=== PATIENT | male | born 1975 | race Caucasian/White ===

== ENCOUNTER 2018-08-17 09:31 | Emergency (ER) | payer BC ==
--- NOTE | 2018-08-17 09:58 | Emergency Department Record ---
History of Present Illness - General Chief Complaint: Syncope Stated Complaint: PASSED OUT, LEFT RIB PAIN Time Seen by Provider: 08/17/18 09:50 Source: Patient, RN notes reviewed Mode of Arrival: Ambulatory - History of Present Illness Initial Comments: patient getting up at 6:30 am and said he had to go the bathroom with a full bladder and urge to have a BM and he got up to go to the bathroom and felt like he ws going to vomit and went to the kitchen to vomit in sink and passed out. states she heard him fall and was with him in 5 seconds and was shaking like seizure activity and drowling. and tried to call EMS and he became aware of everything at about 1-2 minutes and said don't call the ambulance and they came in to the ED by car. Currently alert and oriented times three and he remembers the event except for the fall. PMH hypertension. Patient said he had d iarrhea multiple episodes last night. Onset/Timin -: Hour(s) Prodromal Symptoms: Lightheaded Duration of Episode: 1 -: Minutes(s) Current Symptoms: Abdominal pain, Weakness, Other - [place] Coma Scale Eye Response: (4) Open spontaneously Motor Response: (6) Obeys commands Verbal Response: (5) Oriented [place] Total: 15 - Related Data Home Medications Medication Instructions Recorded Confirmed Last Taken Benazepril HCl [Lotensin] 10 mg PO DAILY 08/17/18 08/17/18 08/16/18 Hydrochlorothiazide [Hctz] 12.5 mg PO DAILY 08/17/18 08/17/18 Unknown Omeprazole Magnesium [Prilosec Otc] 20 mg PO DAILY 08/17/18 08/17/18 08/17/18 Allergies Allergy/AdvReac Type Severity Reaction Status Date / Time kiwi Allergy ANAPHYLAXIS Verified 08/17/18 09:50 mold Allergy HYPERSENSIT Verified 08/17/18 09:50 IVITY Travel Screening - Travel/Exposure Within Last 30 Days Have you traveled within the last 30 days?: No - Travel/Exposure Within Last Year Have you traveled outside the [place] in the last year?: No - Additonal Travel Details Have you been exposed to anyone with a communicable illness?: No - Travel Symptoms Symptom Screening: None, Fever (Subjective), Diarrhea Review of Systems Reviewed: No additional complaints except as noted below Constitutional: Reports: As per HPI. Denies: Chills, Fever, Malaise, Night sweats, Weakness, Weight change Eyes: Reports: As per HPI. Denies: Eye discharge, Eye pain, Photophobia, Vision change ENT: Reports: As per HPI. Denies: Congestion, Dental pain, Ear pain, Epistaxis, Hearing loss, Throat pain Respiratory: Reports: As per HPI, Other (bruise on the left lower rib cage). Denies: Cough, Dyspnea, Hemoptysis, Stridor, Wheezes Cardiovascular: Reports: As per HPI. Denies: Arrhythmia, Chest pain, Dyspnea on exertion, Edema, Murmurs, Orthopnea, Palpitations, Paroxysmal nocturnal dyspnea, Rheumatic Fever, Syncope Endocrine: Reports: As per HPI. Denies: Fatigue, Heat or cold intolerance, Polydipsia, Polyuria Gastrointestinal: Reports: As per HPI. Denies: Abdominal pain, Constipation, Diarrhea, Hematemesis, Hematochezia, Melena, Nausea, Vomiting Genitourinary: Reports: As per HPI. Denies: Dysuria, Frequency, Hematuria, Incontinence, Retention, Testicular pain, Testicular mass, Urgency Musculoskeletal: Reports: As per HPI. Denies: Arthralgia, Back pain, Gout, Joint swelling, Myalgia, Neck pain Skin: Reports: As per HPI. Denies: Bruising, Change in color, Change in hair/nails, Lesions, Pruritus, Rash Neurological: Reports: As per HPI. Denies: Abnormal gait, Confusion, Headache, Numbness, Paresthesias, Seizure, Tingling, Tremors, Vertigo, Weakness Psychiatric: Reports: As per HPI. Denies: Anxiety, Auditory hallucinations, Depression, Homicidal thoughts, Suicidal thoughts, Visual hallucinations Hematological/Lymphatic: Reports: As per HPI. Denies: Anemia, Blood Clots, Easy bleeding, Easy bruising, Swollen glands Past Medical History - SOCIAL HISTORY Smoking Status: Never smoker Alcohol Use: Rare Drug Use: Heavy Drug Use Detail:: Marijuana - RESPIRATORY Hx Respiratory Disorders: No - CARDIOVASCULAR Hx Cardio Disorders: Yes Hx Hypertension: Yes - NEURO Hx Neuro Disorders: Yes - GI Hx GI Disorders: Yes Hx Reflux: Yes - Hx Genitourinary Disorders: No - ENDOCRINE Hx Endocrine Disorders: No - MUSCULOSKELETAL Hx Musculoskeletal Disorders: No - PSYCH Hx Psych Problems: No - HEMATOLOGY/ONCOLOGY Hx Hematology/Oncology Disorders: No Family Medical History Any Significant Family History?: No Physical Exam - General General Appearance: Alert, Oriented x3, Cooperative, No acute distress - Head Head exam: Normal inspection - Eye Eye exam: Normal appearance, PERRL Pupils: Normal accommodation - ENT ENT exam: Normal exam, Mucous membranes moist, Normal external ear exam, Normal orophraynx, TM's normal bilaterally Ear exam: Normal external inspection. negative: External canal tenderness Nasal Exam: Normal inspection. negative: Discharge, Sinus tenderness Mouth exam: Normal external inspection, Tongue normal Teeth exam: Normal inspection. negative: Dental caries Throat exam: Normal inspection. negative: Tonsillar erythema, Tonsillar exudate - Neck Neck exam: Normal inspection, Full ROM. negative: Tenderness - Respiratory Respiratory exam: Normal lung sounds bilaterally. negative: Respiratory distress - Cardiovascular Cardiovascular Exam: Regular rate, Normal rhythm, Normal heart sounds, Other (pain left lower rib cage with bruising) - GI/Abdominal GI/Abdominal exam: Soft, Normal bowel sounds. negative: Tenderness - Rectal Rectal exam: Deferred - exam: Deferred - Extremities Extremities exam: Normal inspection, Full ROM, Normal capillary refill. negative: Tenderness - Back Back exam: Reports: Normal inspection, Full ROM. Denies: Muscle spasm, Rash noted, Tenderness - Neurological Neurological exam: Alert, Normal gait, Oriented X3, Reflexes normal - Psychiatric Psychiatric exam: Normal affect, Normal mood - Skin Skin exam: Dry, Intact, Normal color, Warm Course Vital Signs 08/17/18 09:33 Temperature 98.7 F Pulse Rate 95 H Respiratory 16 Rate Blood Pressure 138/95 Pulse Ox 96 - Reevaluation(s) Reevaluation #1: patient does state marijuana use 08/17/18 10:42 Reevaluation #2: personnel monitor NSR 08/17/18 10:44 08/17/18 10:52 patient has pain palpating spleen. Medical Decision Making - Data Complexity MDM Data: Labs Ordered and/or Reviewed (wbc 13,800,), X-Ray Ordered and/or Reviewed (CT head negative, left rib fractures negative,CT of abd and pelvix no vieral trauma or injuries and some fatty stranding around normal size ly mphnodes) - Lab Data Result diagrams: 08/17/18 10:13 08/17/18 10:13 Disposition Clinical Impression: Syncope Qualifiers: Syncope type: vasovagal syncope Qualified Code(s): R55 - Syncope and collapse Contusion, chest wall Qualifiers: Encounter type: initial encounter Laterality: left Qualified Code(s): S20.212A - Contusion of left front wall of thorax, initial encounter Hypertension Qualifiers: Hypertension type: essential hypertension Qualified Code(s): I10 - Essential (primary) hypertension Abdominal contusion Qualifiers: Encounter type: initial encounter Qualified Code(s): S30.1XXA - Contusion of abdominal wall, initial encounter Disposition: Home, Self-Care Condition: (1) Good Instructions: Syncope (ED), Contusion in Adults (ED) Additional Instructions: follow up with family DR in one week tylenol or ibuprofin for pain Forms: Patient Portal Access Time of Disposition: 12:03 Quality - Quality Measures Quality Measures: N/A - Blood Pressure Screening Does Patient Have Any of the Following: No, Active Dx of HTN Blood Pressure Classification: Hypertensive Reading Systolic Measurement: 138 Diastolic Measurement: 95 Screening for High Blood Pressure: Patient Exclusion, Hx of HTN [[id number]]
[2018-08-17 10:21] LABS: HEMATOCRIT 45.3 % (42.0-52.0); HEMOGLOBIN 15.6 gm/dl (14.0-18.0); MEAN CELL VOLUME 93.2 fl (81-97); MEAN CORPUSCULAR HEMOGLOBIN 32.1 pg (27-33); MEAN CORPUSCULAR HGB CONC 34.4 g/dl (32-36); MEAN PLATELET VOLUME 9.8 fl (7.4-10.4); PLATELET COUNT 251 K/uL (130-400); RED BLOOD COUNT 4.86 M/uL (4.40-5.70); RED CELL DISTRIBUTION WIDTH 13.2 % (11.5-14.5); WHITE BLOOD COUNT W/O DIFF 13.8 K/uL (4.2-12.2)
[2018-08-17 10:22] LABS: URINE APPEARANCE CLEAR; URINE BILIRUBIN NEGATIVE (NEGATIVE); URINE BLOOD NEGATIVE (NEGATIVE); URINE COLOR YELLOW; URINE GLUCOSE (UA) NEGATIVE (NEGATIVE); URINE KETONE NEGATIVE (NEGATIVE); URINE LEUKOCYTE ESTERASE NEGATIVE (NEGATIVE); URINE NITRITE NEGATIVE (NEGATIVE); URINE PROTEIN NEGATIVE (NEGATIVE); URINE UROBILINOGEN 0.2 E.U./dL (0.20 - 1.00)
[2018-08-17 10:28] LABS: THC SCREEN URINE DETECTED
[2018-08-17 10:29] LABS: AMPHETAMINE SCREEN URINE NOT DETECTED; BARBITURATE SCREEN URINE NOT DETECTED; BENZODIAZEPINE SCREEN URINE NOT DETECTED; COCAINE SCREEN URINE NOT DETECTED; METHADONE SCREEN URINE NOT DETECTED; METHAMPHETAMINE SCREEN NOT DETECTED; OPIATE SCREEN URINE NOT DETECTED; OXYCODONE SCREEN URINE NOT DETECTED; PHENCYCLIDINE SCREEN URINE NOT DETECTED; PROPOXYPHENE SCREEN URINE NOT DETECTED; TRICYCLIC ANTIDEPRESSANT SCRN NOT DETECTED
[2018-08-17 10:30] LABS: BLOOD UREA NITROGEN 16 mg/dL (6-20); CREATININE 0.7 mg/dL (0.7-1.2); EST GLOMERULAR FILTRATION RATE > 60 mL/min
[2018-08-17 10:33] LABS: GLUCOSE,RANDOM 133 mg/dL (74-109)
[2018-08-17 10:37] LABS: ACETAMINOPHEN < 5.0 ug/mL (10.0-30.0); SALICYLATE < 0.3 mg/dL (2.8-20)
[2018-08-17 10:49] LABS: ABSOLUTE NEUTROPHIL COUNT 12.46
--- NOTE | 2018-08-17 19:44 | RADIOLOGY REPORT ---
STUDY: Left ribs with PA chest. CLINICAL HISTORY: Syncopal episode with fall. Left posterolateral rib pain. TECHNIQUE: AP and oblique views of the left ribs are obtained as well as an upright PA view of the chest. COMPARISON: None. FINDINGS: There is normal bone mineralization. No definite acute left rib fracture is seen. There is a fracture deformity of the lateral left 4th rib which is likely chronic. Mild degenerative endplate changes are scattered throughout the visualized spine. The heart is not enlarged and the pulmonary vasculature is nondilated. The lungs and pleural spaces are clear. IMPRESSION: 1. No definite acute left rib fracture identified. 2. Fracture deformity of the lateral left 4th rib is probably chronic. 3. No radiographic evidence of acute cardiopulmonary disease. MTDD
--- NOTE | 2018-08-18 20:09 | CT SCAN REPORT ---
EXAM: CT SCAN HEAD WO CONTRAST HISTORY: SYNCOPAL EPISODE WITH FALL. RIGHT-SIDED RIB/CHEST PAIN. TECHNIQUE: Routine noncontrast CT of the brain. COMPARISON: None. FINDINGS: The ventricles and subarachnoid spaces are normal in size. No area of abnormally increased or decreased attenuation is noted throughout the brain substance. The forte-white interfaces are distinct. No abnormal extraaxial fluid collection. No skull fracture is identified. The visualized paranasal sinuses and mastoid air cells are clear with the exception of a tiny retention cyst in the right maxillary sinus. The orbits as visualized are unremarkable. IMPRESSION: 1. NO INTRACRANIAL ABNORMALITY NOR SKULL FRACTURE IDENTIFIED. 2. SMALL RETENTION CYST IN THE RIGHT MAXILLARY SINUS. JOB NUMBER: [id number] [facility]
--- NOTE | 2018-08-18 20:19 | CT SCAN REPORT ---
EXAM: CT SCAN ABDOMEN/PELVIS W CONTRAST HISTORY: SYNCOPAL EPISODE WITH FALL. PAIN IN LEFT CHEST WALL. TECHNIQUE: Following oral and intravenous contrast administration, helical CT examination of the abdomen and pelvis is performed including delayed images through the kidneys with 95 mL of Omnipaque-300 utilized. COMPARISON: Same-day radiographic examinations of the left ribs and chest. FINDINGS: The lung bases are clear. No pleural or pericardial effusion. No pneumothorax. The heart is not enlarged. Mild diffuse decreased density of the liver relative to the spleen with small area of sparing adjacent to the gallbladder fossa. This low density is consistent with steatosis. No suspicious focal hepatic abnormality. The pancreas, spleen, adrenal glands, and kidneys are normal in appearance. The gallbladder is unremarkable and no biliary ductal dilatation is seen. No gross intraabdominal nor retroperitoneal lymphadenopathy identified. Several small nonenlarged lymph nodes within the mesenteric root with adjacent fat haziness. This is nonspecific, though likely inflammatory/postinflammatory. No pelvic mass, lymphadenopathy, or free pelvic fluid. No gross bowel dilatation nor bowel wall thickening. Occasional diverticula questioned in the left colon. The appendix is visualized and normal in appearance. No free intraperitoneal air. No lytic or blastic bone lesion. Bilateral spondylolysis of L5 is associated with minimal anterolisthesis of L5 on S1. Mild anterior marginal endplate spurring scattered throughout the spine, most pronounced at the lower thoracic levels. No acute osseous fracture is visualized. IMPRESSION: 1. NO CT EVIDENCE OF ACUTE VISCERAL INJURY. 2. HEPATIC STEATOSIS. 3. SEVERAL NONENLARGED LYMPH NODES SCATTERED WITHIN THE MESENTERIC ROOT WITH ADJACENT MILD FAT STRANDING. THIS IS NONSPECIFIC BUT LIKELY INFLAMMATORY/POSTINFLAMMATORY. 4. OCCASIONAL DIVERTICULA QUESTIONED IN THE LEFT COLON WITHOUT DIVERTICULITIS. 5. NO CONVINCING ACUTE OSSEOUS FRACTURE. 6. 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 JOB NUMBER: [id number] [facility]
== END 2018-08-17 12:16 | disposition home or self-care (01) ==
LOC: ER 09:31
DX: S20.212A Contusion of left front wall of thorax, initial encounter (principal); S30.1XXA Contusion of abdominal wall, initial encounter; R55 Syncope and collapse; R53.1 Weakness; R19.7 Diarrhea, unspecified; I10 Essential (primary) hypertension; W19.XXXA Unspecified fall, initial encounter; Y92.000 Kitchen of unspecified non-institutional (private) residence as the place of occurrence of the external cause
CPT/HCPCS: 99284 ×2; 85730; 80048; 81003; 80305; 84484; 85027; 71101; 70450; 74177; 93005; 93010; G0480 ×3; Q9967; 80320; 80329